=== PATIENT | female | born 2005 | race Caucasian/White ===

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

== ENCOUNTER 2024-12-08 03:03 | Emergency (ER) | payer OTHER ==
[~2024-12-08] VITALS: Ht 167.6 cm; Wt 136.1 kg
[~2024-12-08 03:03] MED LIST changes: +HYDROCODONE-AC1 EAC1 PO; +METRONIDAZOLE500 M1 PO; +OMNICEF300 MG PO; +Ondansetron4 MG PO
[2024-12-08] MEDS ORDERED: Ondansetron Hydrochloride 4 MG/2 ML VIAL IV ONE ×2 (03:25→04:20)
[2024-12-08] MEDS ORDERED: Pantoprazole Sodium 40 MG VIAL IV ONE (03:25)
[2024-12-08] MEDS ORDERED: MORPHINE Sulfate 2 MG/ML SYR IV ONE (03:25)
[2024-12-08 03:36] LABS: BASO # 0.1 10*3/uL (0.0-0.1); BASO % 0.7 % (0.0-1.0); EOS # 0.3 10*3/uL (0.0-0.4); EOS % 2.8 % (1.0-4.0); HEMATOCRIT 36.5 % (37.0-47.0); MEAN CELL VOLUME 84.3 fl (81.0-99.0); MEAN CORPUSCULAR HGB 26.1 pg (27.0-31.0); MEAN PLATELET VOLUME 10.8 fl (9.6-12.3); MONO % 8.5 % (3.0-9.0); NEUT # 7.9 10*3/uL (2.3-7.9); NEUT % 64.7 % (47.0-73.0); PLATELET COUNT AUTOMATED 391 10*3/uL (130-400); RED BLOOD COUNT 4.33 10*6/uL (4.10-5.10); RED CELL DISTRI WIDTH 13.3 % (0-14.5); WHITE BLOOD COUNT 12.2 10*3/uL (4.8-10.8)
[2024-12-08 03:58] LABS: ALKALINE PHOSPHATASE 95 U/L (46-116); BUN 9 mg/dl (9-23); CHLORIDE 104 mmol/L (98-107); LIPASE 33 U/L (12-53); POTASSIUM 3.4 mmol/L (3.4-5.1); SGPT/ALT 30 U/L (5-49); TOTAL PROTEIN 7.2 gm/dL (6.0-8.0)
[2024-12-08] MEDS ORDERED: fentaNYL CITRATE 100 MCG/2 ML VIAL IV ONE (04:20)
[2024-12-08] MEDS ORDERED: diphenhydrAMINE hydrochloride 50 MG/ML VIAL IV ONE (06:30)
[2024-12-08] MEDS ORDERED: Metoclopramide Hydrochloride 10 MG/2 ML VIAL IV ONE (06:30)
[2024-12-08] MEDS ORDERED: REGLAN10 M1 PO (06:59)
[2024-12-08] MEDS ORDERED: PROTONIX40 MG PO (06:59)
[2024-12-09] MEDS ORDERED: CIPRO500 MG PO (22:30)
== END 2024-12-08 07:32 | disposition home or self-care (01) ==
LOC: ED 03:03
PROVIDERS: Emergency Medicine
DX: K29.70 Gastritis, unspecified, without bleeding (principal); E66.9 Obesity, unspecified; F17.290 Nicotine dependence, other tobacco product, uncomplicated; Z90.49 Acquired absence of other specified parts of digestive tract; Z88.0 Allergy status to penicillin; Z79.899 Other long term (current) drug therapy

== ENCOUNTER 2024-12-09 18:48 | Emergency (ER) | payer OTHER ==
[~2024-12-09] VITALS: Ht 170.1 cm; Wt 127.0 kg
[~2024-12-09 18:48] MED LIST changes: +PROTONIX40 MG PO; +REGLAN10 M1 PO
[2024-12-09] MEDS ORDERED: Ondansetron Hydrochloride 4 MG TAB SL ONE (19:40)
[2024-12-09] MEDS ORDERED: Ketorolac Tromethamine 60 MG/2 ML VIAL IM ONE (19:40)
[2024-12-09 20:22] LABS: BILIRUBIN 2+ (Negative); BLOOD Negative (Negative); CLARITY Cloudy (Clear); COLOR Dark Yellow (Yellow); GLUCOSE Negative (Negative); KETONE 1+ (Negative); LEUKO ESTERASE 1+ (Negative); NITRITE Negative (Negative)
[2024-12-09] MEDS ORDERED: diphenhydrAMINE hydrochloride 50 MG/ML VIAL IV ONE (20:25)
[2024-12-09] MEDS ORDERED: Metoclopramide Hydrochloride 10 MG/2 ML VIAL IV ONE (20:25)
[2024-12-09 20:41] LABS: BASO # 0.1 10*3/uL (0.0-0.1); BASO % 0.9 % (0.0-1.0); EOS # 0.2 10*3/uL (0.0-0.4); EOS % 1.9 % (1.0-4.0); HEMATOCRIT 40.2 % (37.0-47.0); MEAN CELL VOLUME 84.3 fl (81.0-99.0); MEAN CORPUSCULAR HGB CONC 30.8 g/dl (33.0-37.0); MONO # 0.7 10*3/uL (0.1-1.0); MONO % 7.6 % (3.0-9.0); NEUT # 7.2 10*3/uL (2.3-7.9); NEUT % 74.7 % (47.0-73.0); PLATELET COUNT AUTOMATED 387 10*3/uL (130-400); RED BLOOD COUNT 4.77 10*6/uL (4.10-5.10); RED CELL DISTRI WIDTH 13.5 % (0-14.5); WHITE BLOOD COUNT 9.6 10*3/uL (4.8-10.8)
[2024-12-09 20:55] LABS: BACTERIA 4+; EPITHELIAL CELLS TNTC; RBC 0-2 rbc/hpf (0-2)
[2024-12-09 21:05] LABS: ALKALINE PHOSPHATASE 255 U/L (46-116); BUN 8 mg/dl (9-23); CHLORIDE 103 mmol/L (98-107); POTASSIUM 3.3 mmol/L (3.4-5.1); SGPT/ALT 268 U/L (5-49)
[2024-12-09] MEDS ORDERED: Ciprofloxacin Hydrochloride 500 MG TAB PO ONE (21:45)
[2024-12-09] MEDS ORDERED: CIPRO500 MG PO (22:30)
== END 2024-12-09 22:56 | disposition home or self-care (01) ==
LOC: ED 18:48
PROVIDERS: Nurse Practitioner
DX: N39.0 Urinary tract infection, site not specified (principal); R14.1 Gas pain; R11.2 Nausea with vomiting, unspecified; F17.290 Nicotine dependence, other tobacco product, uncomplicated; Z88.0 Allergy status to penicillin; Z79.899 Other long term (current) drug therapy; Z90.49 Acquired absence of other specified parts of digestive tract

== ENCOUNTER 2025-03-17 20:18 | Emergency (ER) | payer OTHER ==
[~2025-03-17 20:18] MED LIST changes: +CIPRO500 MG PO
[2025-03-17 22:26] LABS: BILIRUBIN Negative (Negative); BLOOD Negative (Negative); CLARITY Clear (Clear); COLOR Yellow (Yellow); KETONE Negative (Negative); LEUKO ESTERASE Negative (Negative); NITRITE Negative (Negative); PH 6.0 (4.5-8.0); SPECIFIC GRAVITY <= 1.005 (1.001-1.030); UROBILINOGEN 0.2 E.U./dl (0.0-1.0)
[2025-03-17 22:46] LABS: EPITHELIAL CELLS 16-20; WBC 0-2 wbc/hpf (0-5)
== END 2025-03-17 22:53 | disposition home or self-care (01) ==
LOC: ED 20:18
PROVIDERS: Nurse Practitioner Family
DX: S93.402A Sprain of unspecified ligament of left ankle, initial encounter (principal); F17.290 Nicotine dependence, other tobacco product, uncomplicated; Z88.0 Allergy status to penicillin; Z79.899 Other long term (current) drug therapy; Z90.49 Acquired absence of other specified parts of digestive tract; X50.1XXA Overexertion from prolonged static or awkward postures, initial encounter; Y93.89 Activity, other specified; Y92.89 Other specified places as the place of occurrence of the external cause; Y99.8 Other external cause status